=== PATIENT | male | born 1945 | race Caucasian/White ===

== ENCOUNTER 2017-12-03 07:32 | Day surgery (SDC) | payer BC ==
[2017-12-01 13:03] VITALS: BMI 30.2
--- NOTE | 2017-12-03 07:17 | HP ---
History & Physical Update - History History: No Change - Physical Physical: No Change - Assessment Assessment: No Change - Plan Plan: No Change (Initial H&P is located in paper chart. No new complaints or medications. Here today for elective L3-4 laminectomy.)
[2017-12-03] MEDS ORDERED: oxyCODONE HCL 10 MG SUSTAINED ACTING TABLET PO STA (07:59)
[2017-12-03] MEDS ORDERED: DEXAMETHASONE SOD PHOSPHATE/PF 10 MG/ML SDV ONE (09:34)
[2017-12-03] MEDS ORDERED: MIDAZOLAM HCL 2 MG/2 ML SINGLE DOSE VIAL ONE (09:34)
[2017-12-03] MEDS ORDERED: BUPIVACAINE HCL/PF (5 MG/ML) 30 ML VIAL IJ ONE (09:34)
[2017-12-03] MEDS ORDERED: LIDOCAINE 1%/EPI 1:100000 (20 ML MULTI DOSE VIAL) ONE (09:41)
[2017-12-03] MEDS ORDERED: GUM MASTIC/STORAX/MSAL/ALCOHOL 1 DRP DROPSBTL MC ONE (09:44)
[2017-12-03] MEDS ORDERED: THROMBIN (BOVINE) 5,000 UNIT VIAL TP ONE ×2 (09:48→10:54)
[2017-12-03] MEDS ORDERED: methylPREDNISolone ACET (DEPO) 40 MG/1 ML VIAL ONE ×2 (09:48→10:01)
[2017-12-03] MEDS ORDERED: DEXAMETHASONE SOD PHOSPHATE 4 MG/1 ML VIAL ONE (10:24)
[2017-12-03] MEDS ORDERED: ceFAZolin SODIUM 1 GM VIAL ONE (10:24)
[2017-12-03] MEDS ORDERED: ONDANSETRON 4 MG/2 ML VIAL ONE (10:24)
--- NOTE | 2017-12-03 11:50 | SURG ---
Surgery Deployment Engineer Note Deployment Engineer: El Leyva PA-C Date of Service: 12/03/17 Diagnosis: L3/4 stenosis with radiculopathy Procedure: L3/4 bilateral laminectomy I was present for the entirety of the operative procedure. For further detail, please refer to operative report. Visit type - Case Type Case Type: Scheduled - New patient This patient is new to me today: Yes Date on this admission: 12/03/17
--- NOTE | 2017-12-03 11:50 | OP ---
Operative Note - Note: Operative Date: 12/03/17 Pre-Operative Diagnosis: L3/4 stenosis with radiculopathy Operation: L3/4 bilateral laminectomy Post-Operative Diagnosis: Same as Pre-op Surgeon: Chas Guardado White Washer Piler: El Leyva Anesthesiologist/DIRECTOR OF RESEARCH AND DEVELOPMENT: Elis Biswas Anesthesia: Spinal Estimated Blood Loss (mls): 20 Fluid Volume Replaced (mls): 500 Operative Report Dictated: Yes
[2017-12-03 13:17] VITALS: PULSE 62; TEMP 98.2
--- NOTE | 2017-12-03 14:12 | OP ---
DATE OF OPERATION: 12/03/2017 PREOPERATIVE DIAGNOSIS: Spinal stenosis at L3-L4. POSTOPERATIVE DIAGNOSIS: Spinal stenosis at L3-L4. PROCEDURE PERFORMED: Laminectomy, L3-L4. SURGEON: Chas Guardado MD MEDIA RELATIONS MANAGER: CHIRAG Christianson ESTIMATED BLOOD LOSS: 50 mL. INTRAVENOUS FLUIDS: Per Anesthesia. ANESTHESIA: Spinal/TLIP. COMPLICATIONS: None. DISPOSITION: Patient brought to the PACU in stable condition. INDICATIONS FOR SURGERY: The patient is a 72-year-old gentleman who has been suffering from pain from his back down his legs. X-rays and MRI completed which noted that he had spinal stenosis from L3 to L4. He had gone through an exhaustive course of treatment for this, which included medications, physical therapy, as well as injections. Unfortunately, his pain continued to persist despite all this. At this point, the risks, benefits, and alternatives were discussed and the patient consented to surgery. OPERATIVE NOTE: The patient was brought to the operating room by the Anesthesia staff. After appropriate patient identification was performed, a spinal block was given, along with a TLIP block. The patient was able to position himself prone onto the Ángel frame. All areas of bony prominences well added at this time. Two needles were placed into the back to renée off the L3-4 segment. X-rays taken to confirm this was correct. Needle was removed and 10 mL of lidocaine with epinephrine was injected into his back at this time. His back was prepped and draped in a sterile manner. A timeout was completed. An incision was made from the top of L3 down to the bottom of L4. Dissection was carried down to the fascia. The fascia was split open at this time and appropriate retractors were then placed in. A spinal needle was placed onto the L3 lamina to renée off the L3-4 level. X-rays taken to confirm this was correct. Needle was removed and the interspinous ligament L3-4 was removed. The microscope was brought in. Portions of the L3, L4 lamina were removed and the flavum was identified and removed. A complete decompression was performed, such that by the end of the procedure the L4 nerve root appeared to be well decompressed. All bleeding was well controlled at this time. Steroid was placed over the nerve root, Floseal was placed over that. The fascia was closed with a number 1 Vicryl suture, subcutaneous tissues were closed with 2-0 Vicryl suture, and skin was closed with 3-0 Monocryl suture. Dermabond was applied. Steri-Strips were applied. A sterile dressing was applied. The patient was placed supine on the OR bed and brought to the PACU in stable condition. CHAS GUARDADO M.D. MAGDALENA/[id number] MTDD
[2017-12-03] MEDS ORDERED: oxyCODONE HCL 5 MG TABLET PO PRN (14:28)
[2017-12-03] MEDS ORDERED: ONDANSETRON 4 MG/2 ML VIAL IVPUSH PRN (14:28)
[2017-12-03] MEDS ORDERED: LACTATED RINGERS SOLUTION 1,000 ML IV SCH (14:30)
[2017-12-03 15:39] VITALS: BP 123/78
== END 2017-12-03 15:30 | disposition home or self-care (01) ==
LOC: FASU 07:32 → EDSEX 08:15 → FASU 15:30
PROVIDERS: ATTEND Orthopaedic Surgery Orthopaedic Surgery of the Spine
PROC: 01NB0ZZ Release Lumbar Nerve, Open Approach (ICD-10-PCS; principal; 2017-12-03 10:42)
DX: M48.061 Spinal stenosis, lumbar region without neurogenic claudication (principal)
CPT/HCPCS: 72100-TC-FY; 94760